=== PATIENT | female | born 1945 | race Caucasian/White ===

== ENCOUNTER → 2016-07-30 | Outpatient (CLI) | payer OTHER ==
--- NOTE | 2016-07-30 18:36 | MR ---
MR Cholangiopancreatography History: 71-year-old with irregular contour of the bile ducts on previous MRI. Comparison: MR abdomen January 15, 2016, abdominal ultrasound November 17, 2015, CT abdomen and pelvis November.. Technique: Heavily T2-weighted images were obtained axially and coronally through the biliary ducts. Three-dimensional and multiplanar reconstructions were manipulated by the radiologist and reviewed at the computer. Findings: MRCP: The common bile duct measures 6 mm, within normal limits for age, with normal contour, with no visible filling defects. There is no significant change in a beaded appearance of the intrahepatic b ile ducts, most conspicuous in the left hepatic lobe, with no significant biliary dilatation identifi ed. The pancreatic duct is normal. The right lobe of the liver is elongated, unchanged. The gallbladder, spleen, pancreas, adrenals, and kidneys have a normal unenhanced appearance. A small hiatal hernia is present. The visible colon and small bowel are normal caliber. Mild diverticulosis is noted in the distal colon without evidence of diverticulitis. The aorta is normal caliber. No pathologically enlarged lymph nodes are identified. Degenerative change is present in the spine with mild dextroscoliosis. Impression: 1. Stable mild beaded appearance of the intrahepatic bile ducts, a nonspecific finding, which could b e related to sequela of previous infection, primary biliary cirrhosis, or other etiology. 2. Additional findings as above.
== END ==
LOC: FIMAGING 12:05
PROVIDERS: ATTEND Physician Assistant
DX: R93.2 Abnormal findings on diagnostic imaging of liver and biliary tract (principal)

== ENCOUNTER → 2016-10-21 | Outpatient (CLI) | payer OTHER | LOC: BHFA 10:30 | PROVIDERS: ATTEND Internal Medicine Cardiovascular Disease | DX: R94.31 Abnormal electrocardiogram [ECG] [EKG] (principal); E78.00 Pure hypercholesterolemia, unspecified; J45.909 Unspecified asthma, uncomplicated ==

== ENCOUNTER → 2016-11-04 | Outpatient (CLI) | payer OTHER | LOC: BHFA 09:30 | PROVIDERS: ATTEND Internal Medicine Cardiovascular Disease | DX: R94.31 Abnormal electrocardiogram [ECG] [EKG] (principal); R06.02 Shortness of breath | CPT/HCPCS: 78452; 93017; A9500; J2785 ==

== ENCOUNTER → 2017-09-22 | Outpatient (CLI) | payer OTHER | LOC: FIMAGING 12:16 | PROVIDERS: ATTEND Specialist | DX: J45.909 Unspecified asthma, uncomplicated (principal) ==

== ENCOUNTER → 2017-10-10 | Outpatient (CLI) | payer OTHER | LOC: FIMAGING 15:17 | PROVIDERS: ATTEND Obstetrics & Gynecology Gynecology | DX: Z12.31 Encounter for screening mammogram for malignant neoplasm of breast (principal) ==

== ENCOUNTER → 2018-11-05 | Outpatient (CLI) | payer OTHER | LOC: FIMAGING 12:10 | PROVIDERS: ATTEND Obstetrics & Gynecology Gynecology | DX: Z12.31 Encounter for screening mammogram for malignant neoplasm of breast (principal) ==